=== PATIENT | female | born 1940 | race Caucasian/White ===

== ENCOUNTER 2016-07-25 19:53 | Observation (INO) | payer MEDICARE ==
--- NOTE | 2016-07-25 20:23 | ERPHSYRPT ---
- History of Present Illness Time Seen by Provider: 07/25/16 20:12 Source: patient, family (grand-daughter) Patient Subjective Stated Complaint: Pt with tingling and numbness intermittent right arm x 1 week. Sts today rt side of face felt tingling as well. Sts no problems with speech, no problems finding words. Sts has had a lot of anxiety since having heart stents the first of month. Sts also been anxious since in March. Denies changes in gait. Denies trouble swallowing. Triage Nursing Assessment: Pt alert, oriented, answers all questions appropriately. Skin p/w/d, resps non-labored. Pt ambulatory to tx room steady gait noted. Strong equal chemistry technologist, pupils PERRL, no facial droop, tongue midline, no arm drift, no leg drift. Physician History: CC: numbness right arm and face Hx: 75 y/o patient of Dr Griffith//Moira. She had cardiac stenting one month ago. She is on ASA and plavix. No hx of DM or stroke. She noted intermittent right arm tingling like it is asleep for the past week. Now worse in the right face. No headache. No focal weakness. No dizziness, blurred vision, or double vision. She called the doctor today and was told to come to the hospital. Timing/Duration: week(s) (1) Baseline/Normal Cognition: alert oriented x 3 Current Cognition: alert oriented x 3 Allergies/Adverse Reactions: cephalexin Allergy (Severe, Verified 07/25/16 20:01) Difficulty Breathing Home Medications: Aspirin [Aspirin EC] 81 mg PO DAILY 01/04/16 [History] Ibuprofen 200 mg [Motrin 200 mg] 400 mg PO BID 01/04/16 [History] Levothyroxine Sodium 25 Mcg [Synthroid 25 Mcg] 25 mcg PO DAILY 01/04/16 [ History] Lisinopril 10 mg [Zestril 10 MG] 10 mg PO DAILY 01/04/16 [History] Multivitamin [Multivitamins] 1 tab PO DAILY 01/04/16 [History] Simvastatin 40 mg PO DAILY 01/04/16 [History] Clopidogrel Bisulfate [Clopidogrel] 75 mg PO DAILY 07/25/16 [History] Isosorbide Mononitrate 30 mg [Imdur 30 MG] 30 mg PO DAILY 07/25/16 [History ] Hx Influenza Vaccination/Date Given: No Hx Pneumococcal Vaccination/Date Given: Yes - Review of Systems Constitutional: No Fever, No Chills Eyes: No Vision Changes, No Double Vision Ears, Nose, & Throat: No Symptoms Respiratory: No Symptoms, No Dyspnea Cardiac: No Chest Pain, No Syncope Abdominal/Gastrointestinal: No Abdominal Pain, No Nausea, No Vomiting Genitourinary Symptoms: No Symptoms Skin: No Rash Neurological: Parasthesia, No Dizziness, No Focal Weakness, No Gait Changes, No Headache, No Seizure All Other Systems: Reviewed and Negative - Past Medical History Pertinent Past Medical History: Yes Neurological History: No Pertinent History ENT History: No Pertinent History Cardiac History: High Cholesterol, Hypertension Respiratory History: No Pertinent History Endocrine Medical History: Hypothyroidism Musculoskeletal History: Arthritis GI Medical History: No Pertinent History History: No Pertinent History Psycho-Social History: No Pertinent History Female Reproductive Disorders: No Pertinent History - Past Surgical History Past Surgical History: Yes Neuro Surgical History: No Pertinent History Cardiac: No Pertinent History Respiratory: No Pertinent History Gastrointestinal: No Pertinent History Genitourinary: Other Musculoskeletal: Other Female Surgical History: Hysterectomy, Dilation & Curettage, Tubal Ligation Other Surgical History: bladder tied with hysterectomy, bone spur removed left foot - Social History Smoking Status: Never smoker Exposure to second hand smoke: No Drug Use: none Patient Lives Alone: No - Nursing Vital Signs Nursing Vital Signs: Initial Vital Signs Temperature 97.8 F Temperature Source Oral Pulse Rate 67 Respiratory Rate 16 Blood Pressure [] 137/76 Pain Intensity 0 - [place] Coma Scale Best Eye Response (Neida): (4) open spontaneously Best Verbal Response (Neida): (5) oriented Best Motor Response ([place]): (6) obeys commands [place] Total: 15 - Physical Exam General Appearance: alert, other (ambulatory, pleasant lady) Eye Exam: bilateral eye: PERRL, EOMI Ears, Nose, Throat Exam: normal ENT inspection, moist mucous membranes, other ( tongue midline) Neck Exam: normal inspection, non-tender, supple Respiratory: normal breath sounds, lungs clear Cardiovascular: regular rate/rhythm, No murmur Gastrointestinal: soft, No tenderness, No distention Back Exam: normal inspection Extremity Exam: normal inspection, normal range of motion Mental Status: alert, oriented x 3, cooperative vendor representatives Exam: normal hearing, normal speech, PERRL Motor/Sensory: no motor deficit, sensory deficit (reports abnl sensation right arm) Skin Exam: normal color, warm, dry, No rash SpO2 Interpretation: normal SpO2: 97 Oxygen Delivery: Room Air - Course Nursing assessment & vital signs reviewed: Yes EKG Interpreted by Me: RATE (62), Sinus Rhythm, Right Bundle Branch Block - Radiology Exams cxr X-ray Interpretation: Reviewed by me (SHEREEN), Nml Mediastinum Ordered Tests: Active Orders 24 hr Category Date Time Status Chartered Financial Analyst STAT Care 07/25/16 20:17 Active EKG-ER Only STAT Care 07/25/16 20:17 Active IV Insertion STAT Care 07/25/16 20:17 Active NPO (ED) STAT Care 07/25/16 20:17 Active Pulse Oximetry (ED) STAT Care 07/25/16 20:17 Active CHEST 2 VIEWS (PA AND LAT) Stat Exams 07/25/16 20:18 Taken HEAD WITHOUT CONTRAST [CT] Stat Exams 07/25/16 20:18 Taken CBC W DIFF Stat Lab 07/25/16 20:35 Completed CMP Stat Lab 07/25/16 20:35 Completed PROTIME WITH INR Stat Lab 07/25/16 20:35 Completed PTT Stat Lab 07/25/16 20:35 Completed Lab/Rad Data: Laboratory Result Diagrams 07/25/16 20:35 07/25/16 20:35 Laboratory Results 07/25/16 07/25/16 07/25/16 Range/Units 20:35 20:35 20:35 WBC 6.5 (4.0-10.5) K/mm3 RBC 4.34 (4.1-5.4) M/mm3 Hgb 12.9 (12.0-16.0) gm/dl Hct 38.6 (35-47) % MCV 88.9 (78-100) fl MCH 29.7 (26-32) pg MCHC 33.4 (32-36) g/dl RDW 13.0 (11.5-14.0) % Plt Count 281 (150-450) K/mm3 MPV 9.8 H (6-9.5) fl Gran % 48.3 (36.0-66.0) % Lymphocytes % 37.8 (24.0-44.0) % Monocytes % 12.7 H (0.0-12.0) % Eosinophils % 0.9 (0.00-5.0) % Basophils % 0.3 (0.0-0.4) % Basophils # 0.02 (0-0.4) INR 1.08 (0.8-3.0) PTT 29.1 (25.3-37.0) SECONDS Sodium 133 L (136-145) mEq/L Potassium 4.3 (3.5-5.1) mEq/L Chloride 97 L (98-107) mEq/L Carbon Dioxide 26.3 (21-32) mEq/L Anion Gap 13.8 (5-15) MEQ/L BUN 9 (9-20) mg/dL Creatinine 0.88 (0.55-1.30) mg/dl Estimated GFR > 60 ML/MIN Glucose 104 (70-110) MG/DL Calcium 9.7 (8.5-10.1) mg/dL Total Bilirubin 0.5 (0.2-1.0) mg/dL AST 22 (15-37) U/L ALT 33 (12-78) U/L Alkaline Phosphatase 38 L (46-116) U/L Serum Total Protein 7.2 (6.4-8.2) gm/dL Albumin 3.9 (3.4-5.0) g/dL - Progress Progress Note: 07/25/16 21:02 ABCD2 score 4 points- moderate risk. 07/25/16 21:04 CT brain: yeyo 8:54 PM 07/25/2016: No comps. Normal CT head. 07/25/16 21:30 Pt stable. NIH score 1. Not a TPA candidate due to low NIH scale and time of one week. Called Dr Griffith who knows her well. He advised Tele obs, neuro checks , MRI/MRA/echo in AM, continue asa/plavix. Pt and family agree. Discussed with : Jose Will see patient in: hospital (observation) Counseled pt/family regarding: lab results, diagnosis, need for follow-up, rad results - Departure Time of Disposition: 21:31 Departure Disposition: Observation Clinical Impression: TIA (transient ischemic attack), Hypertension Condition: Stable Critical Care Time: No Referrals: SENDY GRIFFITH MD [Primary Care Provider] -
[2016-07-25 20:56] LABS: BASOPHIL % 0.3 % (0.0-0.4); Eosinophil % 0.9 % (0.00-5.0); Granulocytes % 48.3 % (36.0-66.0); Lymphocytes % 37.8 % (24.0-44.0); Mean Cell Volume 88.9 fl (78-100); Mean Corpuscular Hemoglobin 29.7 pg (26-32); Mean Platelet Volume 9.8 fl (6-9.5); Monocytes % 12.7 % (0.0-12.0); Platelet Count 281 K/mm3 (150-450); Red Blood Count 4.34 M/mm3 (4.1-5.4); White Blood Count 6.5 K/mm3 (4.0-10.5)
[2016-07-25 21:07] LABS: INR 1.08 (0.8-3.0); PROTIME 12.1 SECONDS (9.95-12.35)
[2016-07-25 21:10] LABS: PTT 29.1 SECONDS (25.3-37.0)
[2016-07-25 21:15] LABS: ALBUMIN 3.9 g/dL (3.4-5.0); ALKALINE PHOSPHATASE 38 U/L (46-116); ANION GAP 13.8 MEQ/L (5-15); BILIRUBIN,TOTAL 0.5 mg/dL (0.2-1.0); BLOOD UREA NITROGEN 9 mg/dL (9-20); CHLORIDE 97 mEq/L (98-107); Carbon Dioxide 26.3 mEq/L (21-32); Glucose 104 MG/DL (70-110); Potassium 4.3 mEq/L (3.5-5.1); SGOT/AST 22 U/L (15-37); SGPT/ALT 33 U/L (12-78); SODIUM 133 mEq/L (136-145); Total Protein 7.2 gm/dL (6.4-8.2)
[2016-07-25] MEDS ORDERED: TYLENOL 325 MG PO PRN (22:07)
[2016-07-25] MEDS ORDERED: Zocor 10MG PO SCH (22:07)
[2016-07-25] MEDS ORDERED: ZOCOR 20MG ONE (23:09)
[2016-07-26] MEDS: ECOTRIN 81 MG PO SCH (08:24)
[2016-07-26] MEDS: Zestril 10 MG PO SCH (08:24)
[2016-07-26] MEDS: PLAVIX 75 MG Tablet PO SCH (08:25)
--- NOTE | 2016-07-26 08:38 | PCM.HP ---
History of Present Illness - Chief Complaint Chief Complaint: TIA History of Present Illness: is a 75 year old female pt of Dr. Garcia who has a 1 week hx R hand numbness intermittently. Yesterday she started having R facial numbness so she alerted her family and was brought to the ER. She was admitted for further observation and has MRI, carotid doppler, and echocardiogram planned for today. She states she started having some pain in the posterior upper arm today. Denies any hx dysphasia or dysarthria. Barbara po fine. She had a stent on 06/28/[address] Pizarro and has been taking her aspirin and plavix. - Review of Systems Abdominal/Gastrointestinal: Nausea Musculoskeletal: Myalgias (R posterior upper arm) Neurological: Parasthesia Psychological: Anxiety (increased since in Mar and stent on 06/28/16) All Other Systems: Reviewed and Negative Medications & Allergies Home Medications: Home Medication List Aspirin [Aspirin EC] 81 mg PO DAILY 01/04/16 [History Confirmed 07/25/16] Ibuprofen 200 mg [Motrin 200 mg] 400 mg PO BID 01/04/16 [History Confirmed 07/25/16] Levothyroxine Sodium 25 Mcg [Synthroid 25 Mcg] 25 mcg PO DAILY 01/04/16 [ History Confirmed 07/25/16] Lisinopril 10 mg [Zestril 10 MG] 10 mg PO DAILY 01/04/16 [History Confirmed 07/25/16] Multivitamin [Multivitamins] 1 tab PO DAILY 01/04/16 [History Confirmed 07/25/16 ] Simvastatin 40 mg PO DAILY 01/04/16 [History Confirmed 07/25/16] Clopidogrel Bisulfate [Clopidogrel] 75 mg PO DAILY 07/25/16 [History Confirmed 07/25/16] Isosorbide Mononitrate 30 mg [Imdur 30 MG] 30 mg PO DAILY 07/25/16 [ History Confirmed 07/25/16] Allergies/Adverse Reactions: Allergies Allergy/AdvReac Type Severity Reaction Status Date / Time cephalexin Allergy Severe Difficulty Verified 07/25/16 20:01 Breathing - Past Medical History Past Medical History: Yes Neurological History: No Pertinent History ENT History: No Pertinent History Cardiac History: High Cholesterol, Hypertension Respiratory History: No Pertinent History Endocrine Medical History: Hypothyroidism Musculoskelatal History: Arthritis GI Medical History: No Pertinent History History: No Pertinent History Pyscho-Social History: Anxiety Reproductive Disorders: No Pertinent History - Female History Are you now?: No - Past Surgical History Past Surgical History: Yes Neuro Surgical History: No Pertinent History Cardiac History: Cardiac Stent Respiratory Surgery: No Pertinent History GI Surgical History: No Pertinent History Genitourinary Surgical Hx: Other Musculskeletal Surgical Hx: Other Female Surgical History: Hysterectomy, Dilation & Curettage, Tubal Ligation Other Surgical History: bladder tied with hysterectomy, bone spur removed left foot - Social History Smoking Status: Never smoker Exposure to second hand smoke: No Alcohol: None Drug Use: none - Physical Exam Vital Signs: Vital Signs - 24 hr Temp Pulse Resp BP Pulse Ox 07/25/16 22:28 97.3 F 70 18 180/79 99 07/25/16 21:31 97 07/25/16 20:50 67 16 137/76 96 07/25/16 20:45 96 07/25/16 20:06 97.8 F 65 16 161/75 97 General Appearance: no apparent distress Neurologic Exam: alert, oriented x 3, cooperative Eye Exam: eyes nml inspection, other (EOMI bilat) Ears, Nose, Throat Exam: moist mucous membranes Neck Exam: normal inspection, non-tender, No lymphadenopathy Respiratory Exam: normal breath sounds, lungs clear, No crackles/rales, No rhonchi, No wheezing Cardiovascular Exam: regular rate/rhythm, normal heart sounds, No murmur Gastrointestinal/Abdomen Exam: soft, No tenderness, No distention, No guarding, No rebound Back Exam: normal inspection Extremity Exam: No pedal edema, No swelling Skin Exam: normal color, warm, dry Assessment/Plan (1) Paresthesia Current Visit: Yes Status: Acute Assessment & Plan: If workup here is negative, would do EMG outpatient and consider neurology referral. MRI, carotid doppler, echocardiogram today. Code(s): R20.2 - PARESTHESIA OF SKIN (2) CAD (coronary artery disease) Current Visit: Yes Status: Acute Qualifiers: Coronary Disease-Associated Artery/Lesion type: unspecified vessel or lesion type [place] vs. transplanted heart: [place] heart Associated angina: angina presence unspecified Qualified Code(s): I25.10 - Atherosclerotic heart disease of [place] coronary artery without angina pectoris Assessment & Plan: s/p stent recentl. Continued asa and plavix. 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 I've restarted her home medicines. Code(s): I10 - ESSENTIAL (PRIMARY) HYPERTENSION
--- NOTE | 2016-07-26 08:41 | XRAY ---
Indication: Right arm and face numbness. Comparison: None PA/lateral chest clear. Heart is not enlarged. Descending aorta slightly tortuous. Vascularity normal. Bony thorax intact with minimal degenerative changes. Impression: Nonacute chest.
--- NOTE | 2016-07-26 08:44 | XRAY ---
Indication: Right arm and face numbness and tingling for one week. Multiple contiguous axial images obtained through the head without contrast. Comparison: None Normal appearing brain parenchyma, ventricles, and bony calvarium. Visualized paranasal sinuses and mastoid air cells are pneumatized and clear. Impression: Normal CT head without contrast exam. CT DI 70.00
[2016-07-26] MEDS ORDERED: MOTRIN 200 MG PO PRN (08:50)
[2016-07-26] MEDS ORDERED: MOTRIN 400 MG PO PRN (08:53)
[2016-07-26] MEDS: Imdur 30 MG PO SCH (09:45)
[2016-07-26] MEDS: SYNTHROID 25 MCG PO SCH (09:45)
[2016-07-26] MEDS ORDERED: BABY ASPIRIN 81 MG CHEW PO SCH (10:00)
[2016-07-26] MEDS ORDERED: Ativan 2 MG/1 ML VIAL IV ONE (13:54)
--- NOTE | 2016-07-26 16:10 | XRAY ---
Indication: Right arm and face numbness. Possible TIA. Sagittal, coronal, and axial MRI brain was performed using pre-and post T1, T2, FLAIR, diffusion, and ADC sequences. 15 cc Magnevist contrast use. Comparison: None Ventriculosulcal pattern appears symmetric. A few tiny periventricular degenerative micro-ischemia signal bilaterally. Diffusion images are negative for restricted signal. No acute intracranial hemorrhage, abnormal extra-axial fluid collection, or mass effect. Following gadolinium, there is no abnormal enhancing intra-or extra-axial mass. Fourth ventricle is midline. No hydrocephalus. 7/8 cranial nerve complex bilaterally symmetric. Normal flow-void signal within the major intracerebral circulation. Normal-appearing craniocervical junction and sella turcica. Paranasal sinuses are clear. Impression: 1. No acute intracranial abnormalities or evidence for evolving large vessel territorial stroke. 2. Minimal periventricular degenerative micro-ischemia. 3. Negative contrast exam.
--- NOTE | 2016-07-26 16:15 | XRAY ---
Indication: Right arm and face numbness. Possible TIA. Conventional MRA neck was performed using 15 cc Magnevist contrast. Comparison: None Visualized aortic arch is negative for aneurysm/dissection. Normal patent branching right brachiocephalic, left common carotid, and left subclavian arteries. Right common carotid artery is normal in course and caliber. Widely patent carotid bulb and visualized internal and external carotid arteries. Left common carotid artery, bulb, and visualized internal/external carotid arteries also widely patent. Vertebral arteries demonstrate left vertebral system slightly larger in caliber. 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 Left vertebral artery widely patent. Impression: 1. Left and right carotid arteries of the neck are negative for clinical stenosis, obstruction, or vascular malformation. 2. Patent and dominant left vertebral artery supplying the basilar artery. Occluded distal right vertebral artery.
[2016-07-26] MEDS ORDERED: ZOCOR 20MG PO SCH (22:00)
--- NOTE | 2016-07-27 09:17 | PCM.DS ---
Discharge Summary Date of Admission: 07/25/16 22:04 Admitting Physician: SENDY GRIFFITH Primary Care Provider: SENDY GRIFFITH Allergies Allergies cephalexin Allergy (Severe, Verified 07/25/16 20:01) Difficulty Breathing Hospital Summary - Hospital Course Hospital Course: patient was admitted with paresthesias to right face. has hx of CAD and stent placement approximately 1 month ago. workup with MRA head/neck look normal. symptoms all resolved with ativan before MRI and have not returned since then. - Vitals & Intake/Output Vital Signs: Vital Signs Temperature 97.5 F 07/27/16 08:00 Pulse Rate 65 07/27/16 08:00 Respiratory Rate 20 07/27/16 08:00 Blood Pressure 128/59 07/27/16 08:00 O2 Sat by Pulse Oximetry 93 L 07/27/16 08:00 Intake & Output: Intake & Output 07/24/16 07/25/16 07/26/16 07/27/16 11:59 11:59 11:59 11:59 Intake Total 480 1780 Balance 480 1780 Weight 75.948 kg - Lab Result Diagrams: 07/25/16 20:35 07/25/16 20:35 - Radiology Exams Ordered Rad Exams-Entire Visit: Radiology Procedures Category Date Time Status MRA NECK W AND W/O CONTRAST [MRI] Routine Exams 07/26/16 Completed MRI BRAIN W & W/O CONTRAST [MRI] Routine Exams 07/26/16 Completed Discharge Exam General Appearance: no apparent distress, alert Neurologic Exam: alert, oriented x 3, cooperative, normal mood/affect, nml cerebellar function, sensation nml, No motor deficits Skin Exam: normal color, warm, dry Eye Exam: PERRL, EOMI, eyes nml inspection Respiratory Exam: normal breath sounds, lungs clear, No respiratory distress Cardiovascular Exam: regular rate/rhythm, normal heart sounds Gastrointestinal/Abdomen Exam: soft, No tenderness, No mass Extremity Exam: normal inspection, normal range of motion Final Diagnosis/Problem List - Final Discharge Diagnosis/Problem (1) Paresthesia Current Visit: Yes Status: Acute Assessment & Plan: workup negative, likely anxiety related due to ativan resolving all symptoms. (2) Anxiety Current Visit: Yes Status: Acute Assessment & Plan: home on low dose of xanax 0.25mg po qday prn, advised caution of sedation and use of medication (3) CAD (coronary artery disease) Current Visit: Yes Status: Acute (4) Hypertension Current Visit: Yes Status: Acute - Discharge Disposition: Home, Self-Care Condition: Stable Prescriptions: New Alprazolam 0.25 mg [xanAX 0.25 MG] 0.25 mg PO QDP PRN #30 tablet PRN Reason: Anxiety Continue Multivitamin [Multivitamins] 1 tab PO DAILY Aspirin [Aspirin EC] 81 mg PO DAILY Ibuprofen 200 mg [Motrin 200 mg] 400 mg PO BID Levothyroxine Sodium 25 Mcg [Synthroid 25 Mcg] 25 mcg PO DAILY Simvastatin 40 mg PO DAILY Lisinopril 10 mg [Zestril 10 MG] 10 mg PO DAILY Isosorbide Mononitrate 30 mg [Imdur 30 MG] 30 mg PO DAILY Clopidogrel Bisulfate [Clopidogrel] 75 mg PO DAILY Follow up with: SENDY GRIFFITH MD [Primary Care Provider] - 1 Week (patient prefers morning appointment)
[2016-07-27] MEDS: PLAVIX 75 MG Tablet PO SCH (09:53)
[2016-07-27] MEDS: ECOTRIN 81 MG PO SCH (09:53)
[2016-07-27] MEDS: Zestril 10 MG PO SCH (09:54)
[2016-07-27] MEDS: Imdur 30 MG PO SCH (09:54)
[2016-07-27] MEDS: SYNTHROID 25 MCG PO SCH (09:54)
[2016-07-27 11:29] VITALS: BP 133/60; PULSE 66; O2SAT 97
== END 2016-07-27 11:40 | disposition home or self-care (01) ==
LOC: ED 19:53 → MED SURG 22:04
PROVIDERS: ADMIT Family Medicine; ATTEND Family Medicine
DX: R20.8 Other disturbances of skin sensation (principal); F41.9 Anxiety disorder, unspecified; I25.10 Atherosclerotic heart disease of native coronary artery without angina pectoris; I10 Essential (primary) hypertension; E03.9 Hypothyroidism, unspecified; Z79.899 Other long term (current) drug therapy
CPT/HCPCS: 36000; 36415; 70450; 70549; 70553; 71020; 80053; 85025; 85610; 85730; 93005; 93041; 93268; 96374; 99285; G0378; J2060; A9270-GY